=== PATIENT | male | born 1980 | race Caucasian/White ===

== ENCOUNTER 2017-05-07 15:34 | Emergency (ER) | payer OTHER ==
[2017-05-07 15:49] VITALS: BP 143/99
[2017-05-07] MEDS ORDERED: HYDROcodone/ACETAMIN 5-325 MG* 1 TAB PO ONE ×2 (16:31→18:27)
[2017-05-07] MEDS ORDERED: Ondansetron ODT TAB* 4 MG SL ONE (16:31)
[2017-05-07] MEDS ORDERED: LORazepam TAB(*) 1 MG PO ONE ×2 (16:58→18:28)
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
== END 2017-05-07 18:42 | disposition home or self-care (01) ==
LOC: ED 15:34
DX: S42.002A Fracture of unspecified part of left clavicle, initial encounter for closed fracture (principal); M25.512 Pain in left shoulder; X58.XXXA Exposure to other specified factors, initial encounter; Y93.9 Activity, unspecified; Y92.9 Unspecified place or not applicable
CPT/HCPCS: 71020; 99282; A9270-GY